=== PATIENT | male | born 2000 | race African-American/Black ===

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

== ENCOUNTER 2023-03-23 11:51 | Emergency (ER) | payer BC ==
[~2023-03-23] VITALS: Ht 188 cm; Wt 85.7 kg
[2023-03-23 12:31] VITALS: BP 106/46; PULSE 85; RESP 18; TEMP 98.4; O2SAT 99
[2023-03-23] MEDS ORDERED: PRED20TA2 PO (12:36)
[2023-03-23] MEDS ORDERED: FAMO20TA10 PO (12:36)
[2023-03-23] MEDS ORDERED: DIPH25CA51 PO (12:36)
[2023-03-23] MEDS ORDERED: diphenhdrAMINE HCL 25 MG CAP PO ONE (12:45)
[2023-03-23] MEDS ORDERED: DexAMETHasone SOD PHOS 10MG/1ML VIAL INJ IM ONE (12:45)
[2023-03-23] MEDS ORDERED: FAMOTIDINE 20 MG TAB PO ONE (12:45)
== END 2023-03-23 12:45 | disposition home or self-care (01) ==
LOC: ER 11:51
DX: L50.0 Allergic urticaria (principal); Z88.2 Allergy status to sulfonamides